=== PATIENT | male | born 1965 | race African-American/Black ===

== ENCOUNTER 2017-07-06 18:38 | Inpatient (IN) | payer SELFPAY ==
[~2017-07-06] VITALS: Ht 177.8 cm; Wt 59.0 kg
[2017-07-06] VITALS (23 sets, daily range): BP systolic 64–125; BP diastolic 31–75; PULSE 66–116; RESP 15–16; TEMP 97.9; O2SAT 97–100
[2017-07-06] MEDS ORDERED: SODIUM CHLOR 0.9% 1000 ML INJ 1,000 ML IV SCH (18:49)
[2017-07-06] MEDS ORDERED: NOREPINEPHRINE 4 MG/4 ML AMP ONE (18:58)
[2017-07-06] MEDS ORDERED: SODIUM CHLORIDE 0.9% FLUSH 10 ML FLUSH IV FLUSH PRN (19:00)
[2017-07-06 19:07] LABS: BLOOD GAS BASE EXCESS -10.5 mmol/L (-2-2); BLOOD GAS CARBOXYHEMOGLOBIN 5.5 % (0-4); BLOOD GAS HCO3 17 mmol/L (22-26); BLOOD GAS METHEMOGLOBIN 0.7 % (0-2); BLOOD GAS O2 HGB SATURATION 93 % (90-100); BLOOD GAS OXYGEN CONTENT 15.6 Vol % (12.0-20.0); BLOOD GAS PCO2 49 mmHg (38-42); BLOOD GAS PO2 170 mmHG (61-120); BLOOD GAS TOTAL HGB 11.7 G/DL (12.0-16.0); CRITICAL VALUE YES; DRAW SITE LT RADIAL; FIO2 45 %; NUMBER OF ARTERIAL PUNCTURES 1; OXYGEN DEVICE VENTILATOR; STAT YES; ULNAR PULSE PRESENT; VENT SETTINGS AC15/500/ 5PEEP
--- NOTE | 2017-07-06 19:08 | PD ---
HPI Chief Complaint: Altered Mental Status Time Seen by Provider: 18:48 Travel History International Travel<30 days: No Contact w/Intl Traveler<30days: No Traveled to known affect area: No History of Present Illness HPI Patient is approximately 48-year-old male tentatively identified is Arpan Alston by Stinson act form presents emergency department for evaluation of altered mental status. According to EMS the patient took an unknown quantity of unknown substance last night, then reported to [facility] today for evaluation of suicidal ideation. Apparently while either still in the waiting room her during evaluation the patient became unresponsive and EMS was called. Intubated in the field he also received 0.8mg narcan and BGl was reported as normal by EMS. [facility] Past Medical History Medical History: Unable to Obtain Tetanus Vaccination: Unknown Past Surgical History Surgical History: Unable to Obtain Social History Alcohol Use: No Tobacco Use: No Substance Use: Yes Allergies-Medications (Allergen,Severity, Reaction): Coded Allergies: Unable to Assess (Verified Allergy, Unknown, 07/06/17) Reported Meds & Prescriptions Reported Meds & Active Scripts Active No Active Prescriptions or Reported Medications Review of Systems ROS Limitations: Intubated, Altered Mental Status Physical Exam Narrative GENERAL: Well-developed, thin, comatose. SKIN: Focused skin assessment warm/dry. HEAD: Atraumatic. Normocephalic. EYES: Pupils equal and round. No scleral icterus. No injection or drainage. ENT: No nasal bleeding or discharge. Mucous membranes pink and moist. NECK: Trachea midline. No JVD. CARDIOVASCULAR: Regular rhythm with tachycardia.. No murmur appreciated. RESPIRATORY: Intubated and apneic except for [id number]. GASTROINTESTINAL: Abdomen soft, non-tender, nondistended. Hepatic and splenic margins not palpable. Well-healed surgical scars. MUSCULOSKELETAL: No obvious deformities. No clubbing. No cyanosis. No edema. NEUROLOGICAL: GCS of 3, pinpoint pupils. Data Data Last Documented VS Vital Signs Date Time Temp Pulse Resp B/P (MAP) Pulse Ox O2 Delivery O2 Flow Rate FiO2 07/07/17 00:00 105 16 109/74 (86) 98 35 07/06/17 23:30 Ventilator 07/06/17 20:30 15.00 07/06/17 18:42 97.9 Orders Orders Electrocardiogram (07/06/17 18:49) Ammonia (07/06/17 18:49) Complete Blood Count With Diff (07/06/17 18:49) Comprehensive Metabolic Panel (07/06/17 18:49) Creatine Kinase (Cpk) (07/06/17 18:49) Prothrombin Time / Inr (Pt) (07/06/17 18:49) Act Partial Throm Time (Ptt) (07/06/17 18:49) Troponin I (07/06/17 18:49) Thyroid Stimulating Hormone (07/06/17 18:49) Urinalysis - C+S If Indicated (07/06/17 18:49) Lactic Acid Sepsis Protocol (07/06/17 18:49) Ct Brain W/O Iv Contrast(Rout) (07/06/17 18:49) Blood Glucose (07/06/17 18:49) Ecg Monitoring (07/06/17 18:49) Iv Access Insert/Monitor (07/06/17 18:49) Oximetry (07/06/17 18:49) Sodium Chloride 0.9% Flush (Ns Flush) (07/06/17 19:00) Sodium Chlor 0.9% 1000 Ml Inj (Ns 1000 M (07/06/17 18:49) Drug Screen, Random Urine (07/06/17 18:49) Alcohol (Ethanol) (07/06/17 18:49) Tylenol (Acetaminophen) (07/06/17 18:49) Salicylates (Aspirin) (07/06/17 18:49) Chest, Single Ap (07/06/17 ) Arterial Blood Gas (Abg) (07/06/17 ) Norepinephrine Inj (Levophed Inj) (07/06/17 18:58) Urinary Catheter Management MICHAEL.Q8H (07/06/17 19:16) Urinary Catheter Insert/Apply (07/06/17 19:16) Urinary Catheter Management MICHAEL.Q8H (07/06/17 19:20) Restraints Non-Violent MICHAEL.Q3H (07/06/17 19:22) Midazolam 100 Mg/100 Ml Inj (Versed Inj) (07/06/17 19:30) Neurological Rass Scale Q30MX2,Q2HX4,Q4H (07/06/17 19:22) Neurological Rass Scale Q30MX2,Q2HX4,Q4H (07/06/17 19:22) Fentanyl Drip (Fentanyl Drip) (07/06/17 19:30) CKMB (07/06/17 18:50) CKMB% (07/06/17 18:50) Urine Culture (07/06/17 18:50) Clindamycin 600 Mg Premix (Cleocin 600mg (07/06/17 20:30) Chest, Single Ap (07/06/17 ) Type And Screen (07/06/17 21:47) Arterial Blood Gas (Abg) (07/06/17 22:00) Piperacil-Tazo 3.375 Gm Premix (Zosyn 3. (07/06/17 22:30) Sodium Bicarbonate 8.4% Inj (Sodium Bica (07/06/17 23:15) Admit Order (Ed Use Only) (07/06/17 23:56) Labs Laboratory Tests Test 07/06/17 18:50 07/06/17 18:55 07/06/17 19:00 07/06/17 21:22 White Blood Count 10.0 TH/MM3 Red Blood Count 4.61 MIL/MM3 Hemoglobin 14.4 GM/DL Hematocrit 42.6 % Mean Corpuscular Volume 92.4 FL Mean Corpuscular Hemoglobin 31.2 PG Mean Corpuscular Hemoglobin Concent 33.8 % Red Cell Distribution Width 13.9 % Platelet Count 215 TH/MM3 Mean Platelet Volume 7.3 FL Neutrophils (%) (Auto) 36.8 % Lymphocytes (%) (Auto) 49.9 % Monocytes (%) (Auto) 11.5 % Eosinophils (%) (Auto) 0.6 % Basophils (%) (Auto) 1.2 % Neutrophils # (Auto) 3.7 TH/MM3 Lymphocytes # (Auto) 5.0 TH/MM3 Monocytes # (Auto) 1.2 TH/MM3 Eosinophils # (Auto) 0.1 TH/MM3 Basophils # (Auto) 0.1 TH/MM3 CBC Comment DIFF FINAL Differential Comment Prothrombin Time 11.7 SEC Prothromb Time International Ratio 1.2 RATIO Activated Partial Thromboplast Time 22.5 SEC Urine Color LIGHT-YELLOW Urine Turbidity HAZY Urine pH 5.5 Urine Specific [place] 1.008 Urine Protein TRACE mg/dL Urine Glucose (UA) NEG mg/dL Urine Ketones NEG mg/dL Urine Occult Blood SMALL Urine Nitrite NEG Urine Bilirubin NEG Urine Urobilinogen LESS THAN 2.0 MG/DL Urine Leukocyte Esterase SMALL Urine RBC 1 /hpf Urine WBC 4 /hpf Urine Squamous Epithelial Cells 1 /hpf Urine Bacteria OCC /hpf Microscopic Urinalysis Comment CATH-CULTURE IND Blood Urea Nitrogen 12 MG/DL Creatinine 1.88 MG/DL Random Glucose 123 MG/DL Total Protein 6.8 GM/DL Albumin 3.7 GM/DL Calcium Level 7.9 MG/DL Alkaline Phosphatase 78 U/L Aspartate Amino Transf (AST/SGOT) 35 U/L Alanine Aminotransferase (ALT/SGPT) 17 U/L Total Bilirubin 0.5 MG/DL Sodium Level 144 MEQ/L Potassium Level 3.6 MEQ/L Chloride Level 109 MEQ/L Carbon Dioxide Level 20.2 MEQ/L Anion Gap 15 MEQ/L Estimat Glomerular Filtration Rate 38 ML/MIN Total Creatine Kinase 342 U/L Creatine Kinase MB 2.7 NG/ML Creatine Kinase MB % 0.8 % Troponin I LESS THAN 0.02 NG/ML Thyroid Stimulating Hormone 3rd Gen 0.968 uIU/ML Salicylates Level 3.8 MG/DL Urine Opiates Screen NEG Acetaminophen Level LESS THAN 2.0 MCG/ML Urine Barbiturates Screen NEG Urine Amphetamines Screen NEG Urine Benzodiazepines Screen NEG Urine Cocaine Screen POS Urine Cannabinoids Screen NEG Ethyl Alcohol Level 54 MG/DL Lactic Acid Level 5.4 mmol/L 4.7 mmol/L Ammonia 53 MCMOL/L Blood Gas Puncture Site LT RADIAL Blood Gas Patient Temperature 37.0 Blood Gas HCO3 17 mmol/L Blood Gas Base Excess -10.5 mmol/L Blood Gas Oxygen Saturation 93 % Arterial Blood pH 7.16 Arterial Blood Partial Pressure CO2 49 mmHg Arterial Blood Partial Pressure O2 170 mmHG Arterial Blood Oxygen Content 15.6 Vol % Arterial Blood Carboxyhemoglobin 5.5 % Arterial Blood Methemoglobin 0.7 % Blood Gas Hemoglobin 11.7 G/DL Oxygen Delivery Device VENTILATOR Blood Gas Ventilator Setting AC15/500/ 5PEEP Blood Gas Inspired Oxygen 45 % Test 07/06/17 22:00 Blood Gas Puncture Site RT RADIAL Blood Gas Patient Temperature 37.0 Blood Gas HCO3 20 mmol/L Blood Gas Base Excess -7.4 mmol/L Blood Gas Oxygen Saturation 92 % Arterial Blood pH 7.18 Arterial Blood Partial Pressure CO2 54 mmHg Arterial Blood Partial Pressure O2 102 mmHG Arterial Blood Oxygen Content 19.4 Vol % Arterial Blood Carboxyhemoglobin 3.4 % Arterial Blood Methemoglobin 0.8 % Blood Gas Hemoglobin 14.8 G/DL Oxygen Delivery Device VENTILATOR Blood Gas Ventilator Setting AC15/450 5 PEEP Blood Gas Inspired Oxygen 35 % MDM Medical Decision Making Medical Screen Exam Complete: Yes Emergency Medical Condition: Yes Differential Diagnosis Narcotic overdose, benzodiazepine overdose, substance abuse, Tylenol overdose, salicylate overdose, cocaine washout, head injury, intracranial hemorrhage, suicidal ideation. Narrative Course Patient roomed emergency department, initial GCS of 3D had a few episodes where he was fighting the tube, he was given a dose of propofol 60 mg IV by me, afterwards noted to have hypotension in the 50s to 60s systolic, multiple IV access was obtained the patient was bolused 2 L normal saline by pressure bag correcting his hypotension. He did not require any pressors prior to the end of my shift at 1999, patient's differential diagnosis is still fairly broad, consideration was given for additional Narcan at this time he has an airway protected and safer I think to keep the patient intubated for the night. Versed and fentanyl drips were ordered, Cleary catheter was placed. No signs of trauma seen on his person. With labs and CAT scans still pending the patient was discussed with Dr. Ernandez at 1999 to follow-up these tests and disposition the patient appropriately. Critical Care Narrative Aggregate critical care time was 35 minutes. Time to perform other separately billable procedures was not included in the critical care time. My time did not include minutes spent treating any other patients simultaneously or on activities that did not directly contribute to the patient's treatment. The services I provided to this patient were to treat and/or prevent clinically significant deterioration that could result in: , disability, organ failure I provided critical care services requiring my management, as noted below: Chart data review, documentation time, medication orders and management, vital sign assessments/reviewing monitor data, ordering and reviewing lab tests, ordering and interpreting/reviewing x-rays and diagnostic studies, care of the patient and discussion of the patient with the admitting physicians. Scripts No Active Prescriptions or Reported Meds Kelvin Luciano MD Jul 06, 2017 19:08
[2017-07-06 19:14] LABS: AUTOMATED NEUTROPHIL # 3.7 TH/MM3 (1.8-7.7); BASOPHIL # 0.1 TH/MM3 (0-0.2); BASOPHIL % 1.2 % (0.0-2.0); EOSINOPHIL # 0.1 TH/MM3 (0-0.4); EOSINOPHIL % 0.6 % (0.0-4.0); HEMATOCRIT 42.6 % (39.0-51.0); HEMO FLAGS DIFF FINAL; LYMPH % 49.9 % (9.0-44.0); MEAN CELL VOLUME 92.4 FL (80.0-100.0); MEAN CORPUSCULAR HEMOGLOBIN 31.2 PG (27.0-34.0); MEAN CORPUSCULAR HGB CONC 33.8 % (32.0-36.0); MONO % 11.5 % (0.0-8.0); NEUT % 36.8 % (16.0-70.0); PLATELET COUNT 215 TH/MM3 (150-450); RED BLOOD COUNT 4.61 MIL/MM3 (4.50-5.90); RED CELL DISTRIBUTION WIDTH 13.9 % (11.6-17.2)
[2017-07-06] MEDS ORDERED: MIDAZOLAM 100 MG/100 ML INJ 100 ML IV PRN (19:30)
[2017-07-06] MEDS ORDERED: fentaNYL DRIP 250 ML IV PRN (19:30)
[2017-07-06 19:37] LABS: ANION GAP 15 MEQ/L (5-15); AST (GOT) 35 U/L (15-37); BICARBONATE 20.2 MEQ/L (21.0-32.0); BLOOD UREA NITROGEN 12 MG/DL (7-18); CHLORIDE 109 MEQ/L (98-107); GLOMERULAR FILTRATION RATE 38 ML/MIN (>89); POTASSIUM 3.6 MEQ/L (3.5-5.1); SODIUM (NA) 144 MEQ/L (136-145)
[2017-07-06 19:49] LABS: ACETAMINOPHEN LESS THAN 2.0 MCG/ML (10.0-30.0); ALKALINE PHOSPHATASE 78 U/L (45-117); ALT (GPT) 17 U/L (12-78); CREATINE KINASE 342 U/L (39-308); TOTAL BILIRUBIN ADULT 0.5 MG/DL (0.2-1.0)
[2017-07-06 19:50] LABS: ALCOHOL 54 MG/DL (0-5)
[2017-07-06 19:55] LABS: BACTERIA, URINE OCC /hpf; BLOOD, URINE SMALL (NEG); GLUCOSE,URINE NEG (NEG); KETONE, URINE NEG (NEG); NITRITE,URINE NEG (NEG); PH, URINE 5.5 (5.0-8.5); SQUAMOUS EPITHELIAL CELL URINE 1 /hpf (0-5); URINE COLOR LIGHT-YELLOW (YELLW/STRAW)
[2017-07-06 19:56] LABS: APTT (PATIENT) 22.5 SEC (24.3-30.1); INTERNATIONAL NORMALIZED RATIO 1.2 RATIO; PROTHROMBIN TIME - PATIENT 11.7 SEC (9.8-11.6)
[2017-07-06 19:57] LABS: COMMENT (UR) CATH-CULTURE IND; CULTURE IF INDICATED CATH CULTURE IND
[2017-07-06 20:02] LABS: CKMB 2.7 NG/ML (0.5-3.6)
[2017-07-06] MEDS ORDERED: CLINDAMYCIN PHOS 600 MG/4 ML VIAL IV ONE (20:15)
[2017-07-06] MEDS ORDERED: CLINDAMYCIN 600 MG PREMIX 50 ML IV ONE (20:30)
[2017-07-06 21:08] LABS: LACTIC ACID GHOST NOT REPORTABLE
--- NOTE | 2017-07-06 21:14 | RADRPT ---
EXAM DATE/TIME: 07/06/2017 19:33 [facility] COMPARISON: No previous studies available for comparison. INDICATIONS : Chest pain. MEDICAL HISTORY : None. SURGICAL HISTORY : None. ENCOUNTER: Initial ACUITY: 1 day PAIN SCORE: Non-responsive. LOCATION: Bilateral chest FINDINGS: The ET tube and NG tube are well placed. The heart size is normal. The mediastinal contours are alonso l. There is lucency seen at the superior-medial right upper lung concerning for possible pneumothorax . A pleural line is not clearly seen on this supine chest x-ray. Shift of the heart and mediastinal s tructures is not seen. CONCLUSION: Prominent lucency in the right upper lung. A pneumothorax on the right could be present. Karan Solis MD on July 06, 2017 at 21:10 Board Certified Radiologist. This report was verified electronically.
--- NOTE | 2017-07-06 21:16 | RADRPT ---
EXAM DATE/TIME: 07/06/2017 20:33 [facility] COMPARISON: No previous studies available for comparison. INDICATIONS : Altered mental status. RADIATION DOSE: 34.50 CTDIvol (mGy) MEDICAL HISTORY : Non-responsive. SURGICAL HISTORY : Non-responsive. ENCOUNTER: Initial ACUITY: 1 day PAIN SCALE: Non-responsive LOCATION: cranial TECHNIQUE: Multiple contiguous axial images were obtained of the head. Using automated exposure control and adj ustment of the mA and/or kV according to patient size, radiation dose was kept as low as reasonably a chievable to obtain optimal diagnostic quality images. DICOM format image data is available electro nically for review and comparison. FINDINGS: CEREBRUM: The ventricles are normal for age. No evidence of midline shift, mass lesion, hemorrhage or acute in farction. No extra-axial fluid collections are seen. POSTERIOR FOSSA: The cerebellum and brainstem are intact. The 4th ventricle is midline. The cerebellopontine angle i s unremarkable. EXTRACRANIAL: The visualized portion of the orbits is intact. SKULL: The calvaria is intact. No evidence of skull fracture. CONCLUSION: No acute disease. Karan Solis MD on July 06, 2017 at 21:12 Board Certified Radiologist. This report was verified electronically.
[2017-07-06 22:12] LABS: BLOOD GAS BASE EXCESS -7.4 mmol/L (-2-2); BLOOD GAS CARBOXYHEMOGLOBIN 3.4 % (0-4); BLOOD GAS HCO3 20 mmol/L (22-26); BLOOD GAS METHEMOGLOBIN 0.8 % (0-2); BLOOD GAS O2 HGB SATURATION 92 % (90-100); BLOOD GAS OXYGEN CONTENT 19.4 Vol % (12.0-20.0); BLOOD GAS PCO2 54 mmHg (38-42); BLOOD GAS PO2 102 mmHG (61-120); BLOOD GAS TOTAL HGB 14.8 G/DL (12.0-16.0); CRITICAL VALUE YES; OXYGEN DEVICE VENTILATOR
[2017-07-06 22:13] LABS: DRAW SITE RT RADIAL; FIO2 35 %; NUMBER OF ARTERIAL PUNCTURES 1; STAT NO; ULNAR PULSE PRESENT; VENT SETTINGS AC15/450 5 PEEP
--- NOTE | 2017-07-06 22:25 | RADRPT ---
EXAM DATE/TIME: 07/06/2017 21:38 [facility] COMPARISON: CHEST SINGLE AP, July 06, 2017, 19:33. INDICATIONS : Evaluate for pneumothorax MEDICAL HISTORY : None. SURGICAL HISTORY : None. ENCOUNTER: Subsequent ACUITY: 1 day PAIN SCORE: Non-responsive. LOCATION: Bilateral chest FINDINGS: The ET tube tip is 1.4 cm from the manuel. There continues to be lucency in the right upper chest. A pleural line is not seen. This image was obtained with the patient upright. This could be from emphys ematous change. The lungs are free of focal consolidation. The heart size is normal. A significant ef fusion is not seen. There is some calcific density seen over the lateral aspect of the right scapula. There is degenerative change at the right glenohumeral joint. CONCLUSION: 1. Persistent lucency in the right upper lung without pleural line seen on this upright image. This l ikely reflects emphysematous change. 2. Degenerative change at the right glenohumeral joint and calcification seen over the lateral aspect of the scapula. This could be a loose body within the subscapularis bursa. Other bone lesions in thi s region cannot be excluded. Karan Solis MD on July 06, 2017 at 22:21 Board Certified Radiologist. This report was verified electronically.
[2017-07-06] MEDS ORDERED: PIPERACIL-TAZO 3.375 GM PREMIX 50 ML IV ONE (22:30)
[2017-07-06] MEDS ORDERED: SODIUM BICARBONATE 8.4% INJ 50 MEQ/50 ML SYR IV PUSH ONE (23:15)
[2017-07-07] VITALS (22 sets, daily range): BP systolic 99–127; BP diastolic 54–74; PULSE 79–107; RESP 10–16; TEMP 97.7–98.9; O2SAT 95–100
--- NOTE | 2017-07-07 00:07 | HHI.HP ---
HPI Service Critical Care Medicine Primary Care Physician Admission Diagnosis overdose vs sepsis Diagnosis: Travel History International Travel<30 Days: No Contact w/Intl Traveler <30 Da: No Traveled to Known Affected Are: No History of Present Illness Patient is approximately 48-year-old male identified as Arpan Alston. He is admitted under the Stinson act for evaluation of altered mental status. According to EMS the patient took an unknown quantity of unknown substance last night, then reported to [facility] today for evaluation of suicidal ideation. Apparently while still in the waiting room the patient became unresponsive and EMS was called. He was intubated for an airway protection is now admitted to ICU. Review of Systems ROS Unobtainable, patient is sedated and intubated Past Family Social History Allergies: Coded Allergies: Unable to Assess (Verified Allergy, Unknown, 07/06/17) Past Medical History Unable to obtain Past Surgical History Unable to obtain Reported Medications Unable to obtain Active Ordered Medications Current Medications Medications (Trade) Dose Ordered Sig/Shayy Route PRN Reason Start Time Stop Time Status Last Admin Dose Admin Sodium Chloride (NS Flush) 2 ml UNSCH PRN IV FLUSH FLUSH AFTER USING IV ACCESS 07/06/17 19:00 Midazolam HCl 100 ml @ 2 mls/hr TITRATE PRN IV SEDATION 07/06/17 19:30 07/06/17 20:00 Fentanyl Citrate 250 ml @ 5 mls/hr TITRATE PRN IV SEDATION 07/06/17 19:30 07/06/17 20:00 Family History Unable to obtain Social History Unable to obtain Physical Exam Vital Signs Vital Signs Date Time Temp Pulse Resp B/P (MAP) Pulse Ox O2 Delivery O2 Flow Rate FiO2 07/06/17 23:30 106 16 108/75 (86) 100 Ventilator 35 07/06/17 23:00 104 16 104/69 (81) 100 Ventilator 35 07/06/17 22:30 100 16 96/62 (73) 100 Ventilator 35 07/06/17 22:10 100 35 07/06/17 22:00 104 16 97/63 (74) 100 Ventilator 35 07/06/17 21:30 102 15 99/63 (75) 100 Ventilator 35 07/06/17 21:15 101 15 105/66 (79) 100 Ventilator 35 07/06/17 21:00 106 15 106/66 (79) 100 35 07/06/17 20:45 35 07/06/17 20:45 104 15 104/63 (77) 100 35 07/06/17 20:36 100 100 07/06/17 20:35 109 15 109/63 (78) 100 Ventilator 07/06/17 20:30 107 15 125/66 (85) 99 15.00 07/06/17 20:05 35 07/06/17 20:00 110 15 107/61 (76) 100 Ventilator 35 07/06/17 19:30 100 35 07/06/17 19:20 66 15 99/60 (73) 100 Ventilator 45 07/06/17 19:17 114 15 98/54 (69) 99 Ventilator 45 07/06/17 19:15 110 15 99/57 (71) 100 Ventilator 45 07/06/17 19:10 110 15 101/55 (70) 99 Ventilator 45 07/06/17 19:05 116 15 72/42 (52) 98 Ventilator 45 07/06/17 19:00 102 15 71/45 (54) 97 Ventilator 45 07/06/17 18:58 108 107/61 07/06/17 18:55 45 07/06/17 18:54 102 15 64/31 (42) 100 Auto-Vent 07/06/17 18:49 106 15 94 Auto-Vent 07/06/17 18:42 97.9 107 15 95/50 (65) 98 07/06/17 18:40 98 45 Physical Exam GENERAL: Well-developed, thin, comatose. And intubated SKIN: Focused skin assessment warm/dry. HEAD: Atraumatic. Normocephalic. EYES: Pupils equal and round. No scleral icterus. No injection or drainage. ENT: No nasal bleeding or discharge. Mucous membranes pink and moist. NECK: Trachea midline. No JVD. CARDIOVASCULAR: Regular rhythm with tachycardia.. No murmur appreciated. RESPIRATORY: Intubated and apneic except for [id number]. GASTROINTESTINAL: Abdomen soft, non-tender, nondistended. Hepatic and splenic margins not palpable. Well-healed surgical scars. MUSCULOSKELETAL: No obvious deformities. No clubbing. No cyanosis. No edema. NEUROLOGICAL: GCS of 3, pinpoint pupils. Laboratory Laboratory Tests Test 07/06/17 18:50 07/06/17 18:55 07/06/17 19:00 07/06/17 21:22 White Blood Count 10.0 Red Blood Count 4.61 Hemoglobin 14.4 Hematocrit 42.6 Mean Corpuscular Volume 92.4 Mean Corpuscular Hemoglobin 31.2 Mean Corpuscular Hemoglobin Concent 33.8 Red Cell Distribution Width 13.9 Platelet Count 215 Mean Platelet Volume 7.3 Neutrophils (%) (Auto) 36.8 Lymphocytes (%) (Auto) 49.9 Monocytes (%) (Auto) 11.5 Eosinophils (%) (Auto) 0.6 Basophils (%) (Auto) 1.2 Neutrophils # (Auto) 3.7 Lymphocytes # (Auto) 5.0 Monocytes # (Auto) 1.2 Eosinophils # (Auto) 0.1 Basophils # (Auto) 0.1 CBC Comment DIFF FINAL Differential Comment Prothrombin Time 11.7 Prothromb Time International Ratio 1.2 Activated Partial Thromboplast Time 22.5 Urine Color LIGHT-YELLOW Urine Turbidity HAZY Urine pH 5.5 Urine Specific [place] 1.008 Urine Protein TRACE Urine Glucose (UA) NEG Urine Ketones NEG Urine Occult Blood SMALL Urine Nitrite NEG Urine Bilirubin NEG Urine Urobilinogen LESS THAN 2.0 Urine Leukocyte Esterase SMALL Urine RBC 1 Urine WBC 4 Urine Squamous Epithelial Cells 1 Urine Bacteria OCC Microscopic Urinalysis Comment CATH-CULTURE IND Blood Urea Nitrogen 12 Creatinine 1.88 Random Glucose 123 Total Protein 6.8 Albumin 3.7 Calcium Level 7.9 Alkaline Phosphatase 78 Aspartate Amino Transf (AST/SGOT) 35 Alanine Aminotransferase (ALT/SGPT) 17 Total Bilirubin 0.5 Sodium Level 144 Potassium Level 3.6 Chloride Level 109 Carbon Dioxide Level 20.2 Anion Gap 15 Estimat Glomerular Filtration Rate 38 Total Creatine Kinase 342 Creatine Kinase MB 2.7 Creatine Kinase MB % 0.8 Troponin I LESS THAN 0.02 Thyroid Stimulating Hormone 3rd Gen 0.968 Urine Opiates Screen NEG Acetaminophen Level LESS THAN 2.0 Urine Barbiturates Screen NEG Urine Amphetamines Screen NEG Urine Benzodiazepines Screen NEG Urine Cocaine Screen POS Urine Cannabinoids Screen NEG Ethyl Alcohol Level 54 Lactic Acid Level 5.4 4.7 Ammonia 53 Blood Gas Puncture Site LT RADIAL Blood Gas Patient Temperature 37.0 Blood Gas HCO3 17 Blood Gas Base Excess -10.5 Blood Gas Oxygen Saturation 93 Arterial Blood pH 7.16 Arterial Blood Partial Pressure CO2 49 Arterial Blood Partial Pressure O2 170 Arterial Blood Oxygen Content 15.6 Arterial Blood Carboxyhemoglobin 5.5 Arterial Blood Methemoglobin 0.7 Blood Gas Hemoglobin 11.7 Oxygen Delivery Device VENTILATOR Blood Gas Ventilator Setting AC15/500/ 5PEEP Blood Gas Inspired Oxygen 45 Test 07/06/17 22:00 Blood Gas Puncture Site RT RADIAL Blood Gas Patient Temperature 37.0 Blood Gas HCO3 20 Blood Gas Base Excess -7.4 Blood Gas Oxygen Saturation 92 Arterial Blood pH 7.18 Arterial Blood Partial Pressure CO2 54 Arterial Blood Partial Pressure O2 102 Arterial Blood Oxygen Content 19.4 Arterial Blood Carboxyhemoglobin 3.4 Arterial Blood Methemoglobin 0.8 Blood Gas Hemoglobin 14.8 Oxygen Delivery Device VENTILATOR Blood Gas Ventilator Setting AC15/450 5 PEEP Blood Gas Inspired Oxygen 35 Date/Time Source Procedure Growth Status 07/06/17 18:50 Urine Catheterized Urine Urine Culture Pending Received Result Diagram: 07/06/17184907/06/17 185 Imaging Last 24 hours Impressions Chest X-Ray 07/07/17 0600 Signed Impressions: Service Date/Time: Friday, July 07, 2017 02:39 - CONCLUSION: 1. Stable chest lucency in the upper lung zones, right greater than left, likely representing bullous emphysema. 2. Otherwise, no acute finding is identified. Karan Denton MD Head CT 07/06/17 1849 Signed Impressions: Service Date/Time: June 20:33 - CONCLUSION: No acute disease. MD Adelfo Valentino VTE Risk Assessment Adelfo VTE Risk Assessment: Mod/High Risk (score >= 2) Caprini Risk Assessment Model Point Value = 1 Point Value = 2 Point Value = 3 Point Value = 5 Age 41-60 Minor surgery BMI > 25 kg/m2 Swollen legs Varicose veins or History of unexplained or recurrent spontaneous Oral contraceptives or hormone replacement Sepsis (< 1 month) Serious lung disease, including pneumonia (< 1 month) Abnormal pulmonary function Acute myocardial infarction Congestive heart failure (< 1 month) History of inflammatory bowel disease Medical patient at bed rest Age 61-74 Arthroscopic surgery Major open surgery (> 45 min) Laparoscopic surgery (> 45 min) Malignancy Confined to bed (> 72 hours) Immobilizing plaster cast Central venous access Age >= 75 History of VTE Family history of VTE Factor V Leiden Prothrombin [id number] Lupus anticoagulant Anticardiolipin antibodies Elevated serum homocysteine Heparin-induced thrombocytopenia Other congenital or acquired thrombophilia Stroke (< 1 month) Elective arthroplasty Hip, pelvis, or leg fracture Acute spinal cord injury (< 1 month) Prophylaxis Regimen Total Risk Factor Score Risk Level Prophylaxis Regimen 0-1 Low Early ambulation 2 Moderate Order ONE of the following: *Sequential Compression Device (SCD) *Heparin 5000 units SQ BID 3-4 Higher Order ONE of the following medications: *Heparin 5000 units SQ TID *Enoxaparin/Lovenox 40 mg SQ daily (WT < 150 kg, CrCl > 30 mL/min) *Enoxaparin/Lovenox 30 mg SQ daily (WT < 150 kg, CrCl > 10-29 mL/min) *Enoxaparin/Lovenox 30 mg SQ BID (WT < 150 kg, CrCl > 30 mL/min) AND/OR *Sequential Compression Device (SCD) 5 or more Highest Order ONE of the following medications: *Heparin 5000 units SQ TID (Preferred with Epidurals) *Enoxaparin/Lovenox 40 mg SQ daily (WT < 150 kg, CrCl > 30 mL/min) *Enoxaparin/Lovenox 30 mg SQ daily (WT < 150 kg, CrCl > 10-29 mL/min) *Enoxaparin/Lovenox 30 mg SQ BID (WT < 150 kg, CrCl > 30 mL/min) AND *Sequential Compression Device (SCD) Assessment and Plan Assessment and Plan Respiratory failure - Intubated for an airway protection - No weaning until neurologically improved - Vent bundle - DuoNeb scheduled and when necessary Altered mental status - Intoxication - Overdose - CT head negative - Neuro checks per unit protocol Metabolic acidosis - Underlying renal failure - Lactates trending down - IV fluid hydration - Continue to monitor trend Acute kidney injury - Unknown baseline - Cleary for strict I's and O's - Monitor electrolytes and replace per ICU protocol - Monitor creatinine level DVT GI prophylaxis - Teds SCDs - Subcutaneous heparin - Pepcid Critical Care: The total critical care time was 35 minutes. Time to perform other separately billable procedures was not included in the critical care time. Rusty Denis MD Jul 07, 2017 00:07
[2017-07-07] MEDS ORDERED: LACTULOSE SYRUP 20 GM/30 ML CUP PO PRN (00:15)
[2017-07-07] MEDS ORDERED: MIDAZOLAM HCL 2 MG/2 ML VIAL IV PUSH PRN (00:15)
[2017-07-07] MEDS ORDERED: BISACODYL 10 MG SUPP RECTAL PRN (00:15)
[2017-07-07] MEDS ORDERED: MISCELLANEOUS NURSING INFORMATION XX SCH (00:15)
[2017-07-07] MEDS ORDERED: ACETAMINOPHEN 325 MG TAB PO PRN (00:15)
[2017-07-07] MEDS ORDERED: SENNOSIDES 8.6 MG TAB PO PRN (00:15)
[2017-07-07] MEDS ORDERED: MAGNESIUM HYDROXIDE SUSP 30 ML CUP PO PRN (00:15)
[2017-07-07] MEDS ORDERED: CHLORHEXIDINE GLUCONATE 2 % 1 PACK (2 CLOTHS) TOP PRN (00:15)
[2017-07-07] MEDS ORDERED: ONDANSETRON HCL 4 MG/2 ML VIAL IV PUSH PRN ×2 (00:15→11:30)
[2017-07-07] MEDS ORDERED: PROPOFOL 1000 MG/100 ML INJ 100 ML IV PRN (00:15)
[2017-07-07] MEDS ORDERED: SODIUM CHLORIDE 0.9% FLUSH 10 ML FLUSH IV FLUSH PRN (00:15)
[2017-07-07] MEDS ORDERED: RESP: ALBUTEROL 2.5 MG/IPRATROPIUM 0.5 MG NEB (PRN) INH (00:15)
[2017-07-07] MEDS: SODIUM CHLOR 0.9% 1000 ML INJ 1,000 ML IV SCH ×3 (00:30→16:16)
[2017-07-07] MEDS: HEPARIN SODIUM - SQ 10,000 UNITS/ML VIAL SQ SCH ×3 (01:03→16:18)
[2017-07-07] MEDS: CHLORHEXIDINE GLUCONATE 2 % 1 PACK (2 CLOTHS) TOP SCH (03:12)
--- NOTE | 2017-07-07 03:41 | RADRPT ---
EXAM DATE/TIME: 07/07/2017 02:39 [facility] COMPARISON: CHEST SINGLE AP, July 06, 2017, 21:38. INDICATIONS : Respiratory failure. MEDICAL HISTORY : None. SURGICAL HISTORY : None. ENCOUNTER: Subsequent ACUITY: 2 days PAIN SCORE: Non-responsive. LOCATION: Bilateral chest FINDINGS: Portable AP view of the chest demonstrates a normal-sized cardiac silhouette. Endotracheal tube dista l tip measures 2.7 cm from the manuel and nasogastric tube is within the stomach. Lungs are underinfl ated with atelectasis at the bases and there is lucency in the upper lung zones bilaterally, right gr eater than left. No pneumothorax is appreciated. There is no effusion. Bones and soft tissues demonst rate no acute finding. CONCLUSION: 1. Stable chest lucency in the upper lung zones, right greater than left, likely representing bullous emphysema. 2. Otherwise, no acute finding is identified. Karan Denton MD on July 07, 2017 at 3:38 Board Certified Radiologist. This report was verified electronically.
[2017-07-07] MEDS: RESP: ALBUTEROL 2.5 MG/IPRATROPIUM 0.5 MG NEB (SCH) INH ×4 (04:27→19:46)
[2017-07-07] MEDS: ARTIFICIAL TEARS OPTH SOLN 15 ML BTL EACH EYE SCH ×3 (09:00→18:07)
[2017-07-07] MEDS: DOCUSATE SODIUM 50 MG/SENNA 8.6 MG TAB PO SCH ×2 (09:00→20:55)
[2017-07-07] MEDS: CHLORHEXIDINE 0.12% (ORAL KIT) 15 ML CUP MT SCH ×2 (09:30→20:00)
[2017-07-07] MEDS: FAMOTIDINE 20 MG/2 ML VIAL IV PUSH SCH ×2 (09:30→20:55)
[2017-07-07] MEDS: SODIUM CHLORIDE 0.9% FLUSH 10 ML FLUSH IV FLUSH SCH ×2 (09:31→20:54)
[2017-07-07] MEDS ORDERED: HALOPERIDOL LACTATE 5 MG/ML AMP IM PRN (11:30)
[2017-07-07] MEDS ORDERED: HALOPERIDOL LACTATE 5 MG/ML AMP IV PUSH PRN (11:30)
[2017-07-07] MEDS ORDERED: LORazepam 2 MG TAB PO PRN (11:30)
[2017-07-07] MEDS ORDERED: LORazepam 1 MG TAB PO PRN (11:30)
[2017-07-07] MEDS ORDERED: FLUMAZENIL 0.5 MG/5 ML VIAL IV PUSH PRN (11:30)
[2017-07-07] MEDS ORDERED: LORazepam 2 MG/ML VIAL IV PUSH ONE (11:30)
[2017-07-07] MEDS ORDERED: DEXMEDETOMIDINE HCL 200 MCG/2 ML VIAL IV PUSH ONE (11:30)
[2017-07-07] MEDS ORDERED: LORazepam 2 MG/ML VIAL IV PUSH PRN ×3 (11:30)
[2017-07-07] MEDS: DEXMEDETOMIDINE INJ 200 MCG in SODIUM CHLORIDE 0.9% INJ 50 ML IV PRN (11:45)
[2017-07-07] MEDS ORDERED: DEXAMETHASONE SOD PHOS 4 MG/ML VIAL IV ONE (12:15)
[2017-07-07] MEDS: THIAMINE INJ 100 MG in SODIUM CHLORIDE 0.9% INJ 100 ML IV SCH (13:45)
[2017-07-07] MEDS: MULTIVITAMIN INJ 10 ML, FOLIC ACID INJ 1 MG in SODIUM CHLORID 0.9% 500 ML INJ 500 ML IV SCH (15:12)
--- NOTE | 2017-07-07 16:06 | EKG ---
Date Performed: 07/06/2017 Time Performed: 19:14:52 PTAGE: 89 years EKG: SINUS TACHYCARDIA NONSPECIFIC T-WAVE ABNORMALITY ABNORMAL RHYTHM ECG NO PREVIOUS TRACING DOCTOR: Janelle Paniagua Interpretating Date/Time 07/07/2017 16:05:57
--- NOTE | 2017-07-07 16:09 | EKG ---
Date Performed: 07/07/2017 Time Performed: 01:06:41 PTAGE: 89 years EKG: SINUS TACHYCARDIA NONSPECIFIC T-WAVE ABNORMALITY ABNORMAL RHYTHM ECG Since PREVIOUS TRACING , no significant change noted PREVIOUS TRACIN07/06/2017 19.14 DOCTOR: Janelle Paniagua Interpretating Date/Time 07/07/2017 16:08:05
--- NOTE | 2017-07-07 16:09 | EKG ---
Date Performed: 07/07/2017 Time Performed: 06:55:57 PTAGE: 89 years EKG: Sinus rhythm NORMAL ECG Compared to PREVIOUS TRACING , patient is no longer tachycardic. PREVIOUS TRACIN07/07/2017 01.06 DOCTOR: Janelle Paniagua Interpretating Date/Time 07/07/2017 16:08:57
[2017-07-07] MEDS: LORazepam 2 MG/ML VIAL IV PUSH PRN (19:01)
[2017-07-08] VITALS (13 sets, daily range): BP systolic 100–153; BP diastolic 54–82; PULSE 62–102; RESP 12–32; TEMP 97.7–99.6; O2SAT 93–100
[2017-07-08] MEDS: HEPARIN SODIUM - SQ 10,000 UNITS/ML VIAL SQ SCH ×3 (00:51→17:44)
[2017-07-08] MEDS: SODIUM CHLOR 0.9% 1000 ML INJ 1,000 ML IV SCH ×2 (00:52→22:07)
[2017-07-08] MEDS: DEXMEDETOMIDINE INJ 200 MCG in SODIUM CHLORIDE 0.9% INJ 50 ML IV PRN (00:53)
[2017-07-08 03:48] LABS: AUTOMATED NEUTROPHIL # 7.3 TH/MM3 (1.8-7.7); BASOPHIL # 0.1 TH/MM3 (0-0.2); BASOPHIL % 0.5 % (0.0-2.0); EOSINOPHIL % 0.1 % (0.0-4.0); HEMATOCRIT 38.4 % (39.0-51.0); HEMO FLAGS DIFF FINAL; LYMPH % 16.4 % (9.0-44.0); LYMPHOCYTE # 1.6 TH/MM3 (1.0-4.8); MEAN CELL VOLUME 91.6 FL (80.0-100.0); MEAN CORPUSCULAR HEMOGLOBIN 30.6 PG (27.0-34.0); MEAN CORPUSCULAR HGB CONC 33.4 % (32.0-36.0); MONO % 8.8 % (0.0-8.0); NEUT % 74.2 % (16.0-70.0); PLATELET COUNT 183 TH/MM3 (150-450); RED BLOOD COUNT 4.19 MIL/MM3 (4.50-5.90); RED CELL DISTRIBUTION WIDTH 14.4 % (11.6-17.2); WHITE BLOOD COUNT 9.9 TH/MM3 (4.0-11.0)
[2017-07-08 03:55] LABS: PROTHROMBIN TIME - PATIENT 10.4 SEC (9.8-11.6)
[2017-07-08] MEDS: CHLORHEXIDINE GLUCONATE 2 % 1 PACK (2 CLOTHS) TOP SCH (04:00)
[2017-07-08] MEDS: RESP: ALBUTEROL 2.5 MG/IPRATROPIUM 0.5 MG NEB (SCH) INH ×4 (04:04→22:00)
[2017-07-08 04:22] LABS: BICARBONATE 20.8 MEQ/L (21.0-32.0); MAGNESIUM 2.4 MG/DL (1.5-2.5); POTASSIUM 4.1 MEQ/L (3.5-5.1); TOTAL BILIRUBIN ADULT 0.3 MG/DL (0.2-1.0)
[2017-07-08 04:25] LABS: CALCIUM-PROTEIN CORRECTED 7.4 MG/DL (8.5-10.1)
[2017-07-08] MEDS: DOCUSATE SODIUM 50 MG/SENNA 8.6 MG TAB PO SCH ×2 (07:51→19:52)
[2017-07-08] MEDS: SODIUM CHLORIDE 0.9% FLUSH 10 ML FLUSH IV FLUSH SCH ×2 (07:51→19:52)
[2017-07-08] MEDS: FAMOTIDINE 20 MG/2 ML VIAL IV PUSH SCH ×2 (07:51→19:51)
[2017-07-08] MEDS: CHLORHEXIDINE 0.12% (ORAL KIT) 15 ML CUP MT SCH ×2 (08:00→19:52)
[2017-07-08] MEDS: ARTIFICIAL TEARS OPTH SOLN 15 ML BTL EACH EYE SCH ×3 (08:02→18:00)
[2017-07-08] MEDS: LORazepam 2 MG/ML VIAL IV PUSH PRN (09:56)
--- NOTE | 2017-07-08 10:02 | HHI.CCPN ---
Subjective Remarks/Hospital Course 07/07: Patient is approximately 48-year-old male identified as Arpan Alston. He is admitted under the Stinson act for evaluation of altered mental status. According to EMS the patient took an unknown quantity of unknown substance last night, then reported to [facility] act today for evaluation of suicidal ideation. Apparently while still in the waiting room the patient became unresponsive and EMS was called. He was intubated for an airway protection is now admitted to ICU. 07/08: Extubated yesterday. Was placed on Precedex and received Haldol and Ativan when necessary for agitation yesterday. On Precedex 0.2 mics per KG per hour overnight. Awake and alert now not agitated. Passed swallow eval and is being initiated on by mouth diet. On 2 L nasal cannula which will be tapered off. Objective Vital Signs Date Time Temp Pulse Resp B/P (MAP) Pulse Ox O2 Delivery O2 Flow Rate FiO2 07/08/17 08:00 97.7 76 29 127/63 (84) 99 07/07/17 19:46 Nasal Cannula 3.00 07/07/17 11:14 24 Intake and Output 07/08/17 07/08/17 07/09/17 08:00 16:00 00:00 Output Total 950 ml Balance -950 ml Result Diagram: 07/08/17 0325 07/08/17 0325 Other Results Microbiology Date/Time Source Procedure Growth Status 07/06/17 18:50 Urine Catheterized Urine Urine Culture - Final NO GROWTH IN 48 HOURS. Complete Imaging Last 24 hours Impressions Chest X-Ray 07/07/17 0600 Signed Impressions: Service Date/Time: Friday, July 07, 2017 02:39 - CONCLUSION: 1. Stable chest lucency in the upper lung zones, right greater than left, likely representing bullous emphysema. 2. Otherwise, no acute finding is identified. Karan Denton MD Head CT 07/06/17 2482 Signed Impressions: Service Date/Time: June 20:33 - CONCLUSION: No acute disease. Karan Solis MD Objective Remarks GENERAL: Well-developed, thin male sitting up in bed not in any acute distress SKIN: Focused skin assessment warm/dry. HEAD: Atraumatic. Normocephalic. EYES: Pupils equal and round. No scleral icterus. No injection or drainage. ENT: No nasal bleeding or discharge. Mucous membranes pink and moist. NECK: Trachea midline. No JVD. CARDIOVASCULAR: Regular rhythm with tachycardia.. No murmur appreciated. RESPIRATORY: Intubated and apneic except for [id number]. GASTROINTESTINAL: Abdomen soft, non-tender, nondistended. Hepatic and splenic margins not palpable. Well-healed surgical scars. MUSCULOSKELETAL: No obvious deformities. No clubbing. No cyanosis. No edema. NEUROLOGICAL: Drowsy, easily arousable, following commands, moving all 4 extremities. A/P Assessment and Plan Respiratory failure - Intubated for an airway protection -Extubated yesterday with following C Pap trial - DuoNeb scheduled and when necessary Altered mental status - Intoxication - Overdose - cocaine positive - CT head negative - Neuro checks per unit protocol Metabolic acidosis - Underlying renal failure - Lactates trending down - IV fluid hydration Acute kidney injury - Unknown baseline - Cleary for strict I's and O's - Monitor electrolytes and replace per ICU protocol - Monitor creatinine level DVT GI prophylaxis - Teds SCDs - Subcutaneous heparin - Pepcid Advance by mouth diet. Transfer out of ICU today after stopping Precedex if no further agitation. We'll transfer to hospitalist service for further medical management. Critical care will sign off once patient transferred out of ICU. Robert Krause MD Jul 08, 2017 10:02
[2017-07-08] MEDS ORDERED: CALCIUM GLUCONATE INJ 2 GM in DEXTROSE 5% IN WATER 100ML INJ 100 ML IV ONE ×2 (10:15)
--- NOTE | 2017-07-08 13:06 | PD.PSY.CON ---
Provisional Diagnosis Admission Date Jul 07, 2017 at 00:00 [place]. Cocaine abuse History of Present Illness Service Psychiatry Consult Requested By Attending physician Reason for Consult Suicidal ideation Primary Care Physician Unknown HPI Patient with known history of substance abuse. Now wants treatment at [facility] for substance abuse. However, wants to go home first because he needs to take care of some serious matters. Patient felt to be manipulative with regard to suicidality. At this time he has no suicidal or homicidal ideation, plan or intent. No psychotic symptoms and his cognition is intact. Review of Systems Neurologic: COMPLAINS OF: Abnormal gait Except as stated in HPI: all other systems reviewed are Neg Past Family Social History Coded Allergies: Unable to Assess (Verified Allergy, Unknown, 07/06/17) No Active Prescriptions or Reported Meds Current Medications Medications (Trade) Dose Ordered Sig/Shayy Route Start Time Stop Time Status Last Admin Sodium Chloride 1,000 ml @ 70 mls/hr [id number] IV 07/07/17 00:08 07/08/17 00:52 (NS Flush) 2 ml UNSCH PRN IV FLUSH 07/07/17 00:15 (NS Flush) 2 ml BID IV FLUSH 07/07/17 09:00 07/08/17 07:51 (Tylenol) 650 mg Q6H PRN PO 07/07/17 00:15 (Pepcid Inj) 10 mg Q12HR IV PUSH 07/07/17 09:00 07/08/17 07:51 (Versed Inj) 2 mg Q1H PRN IV PUSH 07/07/17 00:15 (Tears Naturale Opth Soln) 1 drop TID EACH EYE 07/07/17 09:00 07/07/17 18:07 (Zofran Inj) 4 mg Q6H PRN IV PUSH 07/07/17 00:15 (Duoneb Neb) 1 ampule Q6HR NEB INH 07/07/17 04:00 07/08/17 04:04 (Duoneb Neb) 1 ampule Q2HR NEB PRN INH 07/07/17 00:15 (Heparin Inj) 5,000 units Q8H SQ 07/07/17 00:00 07/08/17 07:51 Miscellaneous Information 1 Q361D XX 07/07/17 00:15 (Chlorhexidine 2% Cloth) 3 pack Taper DAILY@04 TOP 07/07/17 04:00 07/03/18 03:59 07/08/17 04:00 (Chlorhexidine 2% Cloth) 3 pack UNSCH PRN TOP 07/07/17 00:15 (Ashley-Colace) 1 tab BID PO 07/07/17 09:00 07/08/17 07:51 (Milk Of Magnesia Liq) 30 ml Q12H PRN PO 07/07/17 00:15 (Senokot) 17.2 mg Q12H PRN PO 07/07/17 00:15 (Dulcolax Supp) 10 mg DAILY PRN RECTAL 07/07/17 00:15 (Lactulose Liq) 30 ml DAILY PRN PO 07/07/17 00:15 (Peridex 0.12% Liq) 15 ml BID@08,20 MT 07/07/17 08:00 07/07/17 20:00 (Haldol Inj) 5 mg Q4H PRN IV PUSH 07/07/17 11:30 Multivitamins 10 ml/Folic Acid 1 mg/Sodium Chloride 510.2 ml @ 125 mls/hr Q24H IV 07/07/17 14:00 07/12/17 13:59 07/07/17 15:12 Thiamine HCl 100 mg/Sodium Chloride 101 ml @ 100 mls/hr Q24H IV 07/07/17 13:00 07/10/17 12:59 07/07/17 13:45 (Vitamin B1) 100 mg DAILY PO 07/11/17 09:00 (Zofran Inj) 4 mg Q6H PRN IV PUSH 07/07/17 11:30 (Romazicon Inj) 0.2 mg Q1M PRN IV PUSH 07/07/17 11:30 (Ativan) 1 mg Q4H PRN PO 07/07/17 11:30 (Ativan Inj) 1 mg Q4H PRN IV PUSH 07/07/17 11:30 07/08/17 09:56 (Ativan) 2 mg Q2H PRN PO 07/07/17 11:30 (Ativan Inj) 2 mg Q2H PRN IV PUSH 07/07/17 11:30 (Ativan Inj) 2 mg Q1H PRN IV PUSH 07/07/17 11:30 07/07/17 15:19 (Ativan Inj) 2 mg Q15M PRN IV PUSH 07/07/17 11:30 (Haldol Inj) 2 mg Q15M PRN IM 07/07/17 11:30 Family Psych History Denied Social History Long history of substance abuse according to records and nurses. Patient's Strengths (min. 2) Verbal and has access to healthcare. Physical Exam GENERAL: SKIN: Warm and dry. HEAD: Normocephalic. EYES: No scleral icterus. No injection or drainage. NECK: Supple, trachea midline. No JVD or lymphadenopathy. CARDIOVASCULAR: Regular rate and rhythm without murmurs, gallops, or rubs. RESPIRATORY: Breath sounds equal bilaterally. No accessory muscle use. GASTROINTESTINAL: Abdomen soft, non-tender, nondistended. MUSCULOSKELETAL: No cyanosis, or edema. BACK: Nontender without obvious deformity. No CVA tenderness. Vital Signs Vital Signs Date Time Temp Pulse Resp B/P (MAP) Pulse Ox O2 Delivery O2 Flow Rate FiO2 07/08/17 12:00 97 07/08/17 08:00 97.7 29 127/63 (84) 99 07/08/17 08:00 Nasal Cannula 2.00 07/07/17 11:14 24 I/O 07/08/17 07/08/17 07/09/17 08:00 16:00 00:00 Output Total 950 ml Balance -950 ml Lab Results Test 07/08/17 03:25 White Blood Count 9.9 TH/MM3 Red Blood Count 4.19 MIL/MM3 Hemoglobin 12.8 GM/DL Hematocrit 38.4 % Mean Corpuscular Volume 91.6 FL Mean Corpuscular Hemoglobin 30.6 PG Mean Corpuscular Hemoglobin Concent 33.4 % Red Cell Distribution Width 14.4 % Platelet Count 183 TH/MM3 Mean Platelet Volume 7.4 FL Neutrophils (%) (Auto) 74.2 % Lymphocytes (%) (Auto) 16.4 % Monocytes (%) (Auto) 8.8 % Eosinophils (%) (Auto) 0.1 % Basophils (%) (Auto) 0.5 % Neutrophils # (Auto) 7.3 TH/MM3 Lymphocytes # (Auto) 1.6 TH/MM3 Monocytes # (Auto) 0.9 TH/MM3 Eosinophils # (Auto) 0.0 TH/MM3 Basophils # (Auto) 0.1 TH/MM3 CBC Comment DIFF FINAL Differential Comment Prothrombin Time 10.4 SEC Prothromb Time International Ratio 1.0 RATIO Blood Urea Nitrogen 16 MG/DL Creatinine 1.48 MG/DL Random Glucose 119 MG/DL Total Protein 6.4 GM/DL Albumin 3.1 GM/DL Calcium Level 7.0 MG/DL Phosphorus Level 2.2 MG/DL Magnesium Level 2.4 MG/DL Alkaline Phosphatase 69 U/L Aspartate Amino Transf (AST/SGOT) 40 U/L Alanine Aminotransferase (ALT/SGPT) 24 U/L Total Bilirubin 0.3 MG/DL Sodium Level 148 MEQ/L Potassium Level 4.1 MEQ/L Chloride Level 120 MEQ/L Carbon Dioxide Level 20.8 MEQ/L Anion Gap 7 MEQ/L Estimat Glomerular Filtration Rate 60 ML/MIN Lactic Acid Level 1.6 mmol/L Protein Corrected Calcium 7.4 MG/DL Date/Time Source Procedure Growth Status 07/07/17 02:28 Sputum Endotracheal Gram Stain - Final Resulted 07/07/17 02:28 Sputum Endotracheal Sputum Culture Pending Resulted 07/06/17 18:50 Urine Catheterized Urine Urine Culture - Final NO GROWTH IN 48 HOURS. Complete Mental Status Examination Appearance: Appropriate Consciousness: Alert Orientation: x4 Motor Activity: Normal gait Speech: Unremarkable Language: Adequate Fund of Knowledge: Adequate Attention and Concentration: Adequate Memory: Unremarkable Mood: Appropriate Affect: Appropriate Thought Process & Associations: Intact Thought Content: Appropriate Hallucination Type: None Delusion Type: None Suicidal Ideation: No Suicidal Plan: No Suicidal Intention: No Homicidal Ideation: No Homicidal Plan: No Homicidal Intention: No Insight: Adequate Judgment: Adequate Assessment & Plan Problem List: (1) Cocaine abuse ICD Codes: F14.10 - Cocaine abuse, uncomplicated Assessment & Plan Estimated LOS: days this physician feels patient's primary problem is drug abuse. We are not the licensed facility for this issue. Patient has been to [facility] before and wants to return there for treatment. However he wants to go home first. This physician does not feel he meets Stinson act criteria. Order left that patient's Stinson act is hereby discontinued. Patient does not meet criteria for inpatient psychiatric hospitalization. Horace Membreno MD Jul 08, 2017 13:06
[2017-07-08] MEDS: THIAMINE INJ 100 MG in SODIUM CHLORIDE 0.9% INJ 100 ML IV SCH (13:31)
[2017-07-08] MEDS: MULTIVITAMIN INJ 10 ML, FOLIC ACID INJ 1 MG in SODIUM CHLORID 0.9% 500 ML INJ 500 ML IV SCH (15:56)
[2017-07-09] VITALS (9 sets, daily range): BP systolic 114–120; BP diastolic 64–71; PULSE 70–92; RESP 16–17; TEMP 98.1–99.1; O2SAT 91–94
[2017-07-09] MEDS: CHLORHEXIDINE GLUCONATE 2 % 1 PACK (2 CLOTHS) TOP SCH (00:48)
[2017-07-09] MEDS: RESP: ALBUTEROL 2.5 MG/IPRATROPIUM 0.5 MG NEB (SCH) INH ×2 (03:46→07:43)
[2017-07-09] MEDS: HEPARIN SODIUM - SQ 10,000 UNITS/ML VIAL SQ SCH ×2 (08:00)
[2017-07-09] MEDS: CHLORHEXIDINE 0.12% (ORAL KIT) 15 ML CUP MT SCH (08:00)
[2017-07-09] MEDS: FAMOTIDINE 20 MG/2 ML VIAL IV PUSH SCH (08:17)
[2017-07-09] MEDS: DOCUSATE SODIUM 50 MG/SENNA 8.6 MG TAB PO SCH (08:21)
[2017-07-09] MEDS: SODIUM CHLORIDE 0.9% FLUSH 10 ML FLUSH IV FLUSH SCH (08:22)
[2017-07-09] MEDS: ARTIFICIAL TEARS OPTH SOLN 15 ML BTL EACH EYE SCH ×2 (08:22→13:00)
[2017-07-09 09:44] LABS: HEMATOCRIT 39.2 % (39.0-51.0); MEAN CELL VOLUME 90.6 FL (80.0-100.0); MEAN CORPUSCULAR HEMOGLOBIN 30.2 PG (27.0-34.0); MEAN CORPUSCULAR HGB CONC 33.3 % (32.0-36.0); PLATELET COUNT 204 TH/MM3 (150-450); RED BLOOD COUNT 4.32 MIL/MM3 (4.50-5.90); RED CELL DISTRIBUTION WIDTH 13.9 % (11.6-17.2); REVIEW FLAG FINAL; WHITE BLOOD COUNT 7.5 TH/MM3 (4.0-11.0)
[2017-07-09 10:11] LABS: BICARBONATE 23.5 MEQ/L (21.0-32.0); POTASSIUM 3.5 MEQ/L (3.5-5.1)
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
[2017-07-09] MEDS ORDERED: THIA100 PO (10:48)
[2017-07-09] MEDS ORDERED: VENTAER INH (10:48)
[2017-07-09] MEDS ORDERED: FAMO20TA2 PO (10:48)
[2017-07-09] MEDS ORDERED: POLY99.0 EACH EYE (10:48)
[2017-07-09] MEDS ORDERED: PILL SPLITTER OTHER PRN (11:15)
--- NOTE | 2017-07-09 13:01 | HHI.DCPOC ---
Discharge Care Plan Diagnosis: (1) Intentional ibuprofen overdose (2) Cocaine abuse (3) Alcohol abuse Your Health Problems Are: Anxiety Shortness of Breath Additional Problems Polysubstance Abuse Goals to Promote Your Health * To prevent worsening of your condition and complications * To maintain your health at the optimal level Directions to Meet Your Goals Take your medications as prescribed Follow your dietary instruction Follow activity as directed Keep your appointments as scheduled Take your immunizations and boosters as scheduled If your symptoms worsen call your PCP, if no PCP go to Urgent Care Center or Emergency Room Smoking is Dangerous to Your Health. Avoid second hand smoke Call the 24-hour hour crisis hotline for domestic abuse at Albertina Ceballos Jul 09, 2017 13:01
[2017-07-09] MEDS ORDERED: FAMOTIDINE 20 MG TAB PO SCH (21:00)
[2017-07-11] MEDS ORDERED: THIAMINE HCL 100 MG TAB PO SCH (09:00)
== END 2017-07-09 16:18 | disposition home or self-care (01) | DRG 208 ==
LOC: NEPC 18:38 → EDBD 07-07 → NEDA 07-07 → HIME 07-07 02:15 → N07A 07-08 18:29
PROVIDERS: ADMIT Family Medicine; ATTEND Family Medicine
PROC: 5A1935Z Respiratory Ventilation, Less than 24 Consecutive Hours (ICD-10-PCS; principal; 2017-07-07)
DX: J96.00 Acute respiratory failure, unspecified whether with hypoxia or hypercapnia (principal); N17.9 Acute kidney failure, unspecified; E87.2 Acidosis; F14.10 Cocaine abuse, uncomplicated; T39.312A Poisoning by propionic acid derivatives, intentional self-harm, initial encounter; F10.129 Alcohol abuse with intoxication, unspecified; Y90.2 Blood alcohol level of 40-59 mg/100 ml
CPT/HCPCS: 36600; 51702; 70450; 71010; 80048; 80053; 80307; 81001; 82140; 82550; 82552; 82805; 83605; 83735; 84100; 84443; 84484; 85025; 85027; 85610; 85730; 86850; 86900; 86901; 87070; 87077; 87086; 87184; 87185; 87205; 87641; 93005; 94002; 94003; 94640; 94664; 96365; 96367; 96368; 96375; J0610; J1100; J1644; J2060; J2250; J2543; J3010; J3411; J7030; J7040

== ENCOUNTER → 2017-07-28 | Outpatient (CLI) | payer SELFPAY ==
[~2017-07-28] MED LIST: ETOMIDATE 20 MG/10 ML VIAL IV PUSH ONE; FAMO20TA2 PO; LORazepam 2 MG/ML VIAL IV PUSH ONE; MORPHINE SULFATE 4 MG/ML INJ IV PUSH ONE; POLY99.0 EACH EYE; SUCCINYLCHOLINE CHLORIDE 100 MG/5 ML SYRINGE IV PUSH ONE; THIA100 PO; VENTAER INH
== END ==
LOC: HEDF 13:18
DX: T30.0 Burn of unspecified body region, unspecified degree (principal); X58.XXXA Exposure to other specified factors, initial encounter
CPT/HCPCS: A0431; A0436; J0330; J2060; J2270